=== PATIENT | male | born 1935 | race Caucasian/White ===

== ENCOUNTER 2018-12-27 15:06 | Inpatient (IN) ==
[2018-12-27 16:59] LABS: Basophils % 0.6 % (0.0-0.8); Eosinophils # 0.5 10*3/uL (0.0-0.87); Eosinophils % 6.7 % (0.00-10.9); Hematocrit 47.5 VOL% (42.0-52.0); Hemoglobin 15.2 GM/DL (14.0-18.0); Immature Granulocytes % 0.3 %; Immature Granulocytes Absolute 0.02 #; Lymphocytes # 1.7 10*3/uL (1.4-4.0); Lymphocytes % 25.3 % (21.2-54.2); Mean Corpuscular Volume 99.6 FL (87-102); Mean Platelet Volume 9.8 FL (9.6-12.0); Monocytes % 6.9 % (1.7-12.7); Neutrophils % 60.2 % (38.7-73.9); Platelet Count 124 T/CUMM (130-400); Red Blood Count 4.77 MC/CUMM (3.8-5.5); Red Cell Distribution Width 13.8 % (9.3-17.3); White Blood Count 6.7 T/CUMM (4-12)
[2018-12-27 18:04] LABS: Albumin 3.5 G/DL (3.4-5.0); Bilirubin,Total 0.8 MG/DL (0.2-1.0); Calcium 8.8 MG/DL (8.5-10.1); Osmolality,Calculated 285.1 MOS/KG (273-304)
[2018-12-27] MEDS ORDERED: CEFTAROLINE 600 MG in SODIUM CHLORIDE 0.9% 100 ML IV STA (20:19)
[2018-12-27] MEDS ORDERED: methylPREDNISolone SOD SUC 125 MG/2 ML VIAL IV STA (20:19)
[2018-12-27] MEDS ORDERED: ONDANSETRON 4 MG/2 ML VIAL IV STA (20:19)
[2018-12-27] MEDS ORDERED: FUROSEMIDE 100 MG/10 ML VIAL IV STA (20:19)
[2018-12-27] MEDS ORDERED: ALBUTEROL 2.5 MG/3 ML NEB RESP TX SCH (20:30)
[2018-12-27 21:27] LABS: Apearance,Urine CLEAR (Clear); Bilirubin,Urine Negative (Negative); Blood, Urine Negative (Negative); Glucose,Urine (UA) Negative (Negative); Hyaline Casts,Urine 8 /LPF (0-3); Ketones,Urine Negative (Negative); Mucus,Urine Occasional /LPF (Occasional); Nitrite,Urine Negative (Negative); Protein,Urine Negative; RBC,Urine 1 /HPF (0-4); Urine Color Yellow (Yellow); Urine Specific Gravity 1.014 (1.001-1.035); Urine Urobilinogen < 2.0 EU/DL (0.2-1.0); WBC,Urine 1 /HPF (0-6)
[2018-12-27 21:27] LABS: ABG Base Excess 6.3 MMOL/L (-2.5-2.5); ABG HCO3 30.2 MMOL/L (20-26); ABG Oxygen Saturation 98.7 % (95-100); ABG PCO2 67.5 MM HG (35-48); ABG TCO2 30.4 MMOL/L (23-27)
[2018-12-27] MEDS ORDERED: MORPHINE 4 MG/1 ML VIAL IV PRN (23:36)
[2018-12-27] MEDS ORDERED: ONDANSETRON 4 MG/2 ML VIAL IV PRN ×2 (23:36)
[2018-12-27] MEDS ORDERED: ACETAMINOPHEN 325 MG TABLET PO PRN ×2 (23:36)
[2018-12-28] MEDS: ALBUTEROL/IPRATROPIUM 3 ML NEB RESP TX SCH ×6 (00:06→19:02)
[2018-12-28] MEDS: SODIUM CHLORIDE 0.9% 1,000 ML IV SCH ×2 (01:31→19:33)
[2018-12-28 04:51] LABS: Basophils % 0.3 % (0.0-0.8); Eosinophils % 0.3 % (0.00-10.9); Hematocrit 49.7 VOL% (42.0-52.0); Hemoglobin 15.4 GM/DL (14.0-18.0); Immature Granulocytes % 0.3 %; Immature Granulocytes Absolute 0.01 #; Lymphocytes # 0.3 10*3/uL (1.4-4.0); Lymphocytes % 8.3 % (21.2-54.2); Mean Platelet Volume 9.3 FL (9.6-12.0); Monocytes % 0.8 % (1.7-12.7); Platelet Count 103 T/CUMM (130-400); Red Blood Count 4.92 MC/CUMM (3.8-5.5); Red Cell Distribution Width 13.5 % (9.3-17.3); White Blood Count 3.9 T/CUMM (4-12)
[2018-12-28 05:15] LABS: Albumin 3.5 G/DL (3.4-5.0); Bilirubin,Total 1.2 MG/DL (0.2-1.0); Calcium 8.4 MG/DL (8.5-10.1); Osmolality,Calculated 287.3 MOS/KG (273-304); Risk Ratio 2.17; Total Protein 7.1 G/DL (6.4-8.3); VLDL CHOLESTEROL 7.2 MG/DL
[2018-12-28] MEDS: methylPREDNISolone SOD SUC 40 MG/1 ML VIAL IV SCH ×3 (05:25→20:43)
[2018-12-28] MEDS ORDERED: MELOXICAM 7.5 MG TABLET PO PRN (07:05)
[2018-12-28] MEDS ORDERED: SENNA 8.6 MG TABLET PO PRN (07:30)
[2018-12-28] MEDS ORDERED: PANTOPRAZOLE 40 MG VIAL IV SCH (09:00)
[2018-12-28] MEDS ORDERED: DOCUSATE SODIUM 100 MG CAPSULE PO SCH (09:00)
[2018-12-28] MEDS: ASPIRIN EC 325 MG TABLET PO SCH (10:05)
[2018-12-28] MEDS: ENOXAPARIN 40 MG/0.4 ML SYRINGE SUBCUT SCH (10:05)
[2018-12-28] MEDS: MONTELUKAST 10 MG TABLET PO SCH (10:05)
[2018-12-28] MEDS: DOCUSATE SODIUM 100 MG CAPSULE PO SCH ×2 (10:06→20:41)
[2018-12-28] MEDS: PANTOPRAZOLE 40 MG TABLET PO SCH (10:06)
[2018-12-28] MEDS: POTASSIUM CHLORIDE 20 MEQ TABLET PO SCH (10:06)
[2018-12-28] MEDS: amLODIPine 5 MG TABLET PO SCH (10:06)
[2018-12-28] MEDS: FUROSEMIDE 40 MG TABLET PO SCH ×2 (10:06→17:54)
[2018-12-28] MEDS: CEFTAROLINE 600 MG in SODIUM CHLORIDE 0.9% 100 ML IV SCH ×2 (10:07→20:41)
[2018-12-28] MEDS: FLUTICASONE 50 MCG NASAL SPRAY 16 GM BOTTLE BOTH NARES SCH (10:10)
[2018-12-28] MEDS: TAMSULOSIN 0.4 MG CAPSULE PO SCH (20:41)
[2018-12-28] MEDS: ATORVASTATIN 40 MG TABLET PO SCH (20:41)
[2018-12-28] MEDS: TEMAZEPAM 15 MG CAPSULE PO PRN (22:41)
[2018-12-29] MEDS: ALBUTEROL/IPRATROPIUM 3 ML NEB RESP TX SCH ×7 (00:10→23:59)
[2018-12-29] MEDS: methylPREDNISolone SOD SUC 40 MG/1 ML VIAL IV SCH ×3 (05:39→20:43)
[2018-12-29] MEDS: SODIUM CHLORIDE 0.9% 1,000 ML IV SCH (07:19)
[2018-12-29] MEDS: POTASSIUM CHLORIDE 20 MEQ TABLET PO SCH (08:54)
[2018-12-29] MEDS: MONTELUKAST 10 MG TABLET PO SCH (08:54)
[2018-12-29] MEDS: amLODIPine 5 MG TABLET PO SCH (08:54)
[2018-12-29] MEDS: ASPIRIN EC 325 MG TABLET PO SCH (08:54)
[2018-12-29] MEDS: PANTOPRAZOLE 40 MG TABLET PO SCH (08:54)
[2018-12-29] MEDS: DOCUSATE SODIUM 100 MG CAPSULE PO SCH ×2 (08:54→20:40)
[2018-12-29] MEDS: FUROSEMIDE 40 MG TABLET PO SCH (08:54)
[2018-12-29] MEDS: ENOXAPARIN 40 MG/0.4 ML SYRINGE SUBCUT SCH (08:55)
[2018-12-29] MEDS: FLUTICASONE 50 MCG NASAL SPRAY 16 GM BOTTLE BOTH NARES SCH (08:55)
[2018-12-29] MEDS: CEFTAROLINE 600 MG in SODIUM CHLORIDE 0.9% 100 ML IV SCH ×2 (08:55→20:39)
[2018-12-29] MEDS: ATORVASTATIN 40 MG TABLET PO SCH (20:44)
[2018-12-29] MEDS: TAMSULOSIN 0.4 MG CAPSULE PO SCH (20:44)
[2018-12-29] MEDS: TEMAZEPAM 15 MG CAPSULE PO PRN (20:45)
[2018-12-30] MEDS: ALBUTEROL/IPRATROPIUM 3 ML NEB RESP TX SCH ×6 (03:56→23:41)
[2018-12-30] MEDS: methylPREDNISolone SOD SUC 40 MG/1 ML VIAL IV SCH ×3 (05:29→21:18)
[2018-12-30] MEDS: FLUTICASONE 50 MCG NASAL SPRAY 16 GM BOTTLE BOTH NARES SCH (09:10)
[2018-12-30] MEDS: ASPIRIN EC 325 MG TABLET PO SCH (09:10)
[2018-12-30] MEDS: DOCUSATE SODIUM 100 MG CAPSULE PO SCH ×2 (09:10→21:19)
[2018-12-30] MEDS: POTASSIUM CHLORIDE 20 MEQ TABLET PO SCH (09:10)
[2018-12-30] MEDS: PANTOPRAZOLE 40 MG TABLET PO SCH (09:10)
[2018-12-30] MEDS: amLODIPine 5 MG TABLET PO SCH (09:10)
[2018-12-30] MEDS: ENOXAPARIN 40 MG/0.4 ML SYRINGE SUBCUT SCH (09:11)
[2018-12-30] MEDS: CEFTAROLINE 600 MG in SODIUM CHLORIDE 0.9% 100 ML IV SCH ×2 (09:11→21:20)
[2018-12-30] MEDS: FUROSEMIDE 40 MG TABLET PO SCH (09:11)
[2018-12-30] MEDS: MONTELUKAST 10 MG TABLET PO SCH (09:11)
[2018-12-30] MEDS: TAMSULOSIN 0.4 MG CAPSULE PO SCH (21:18)
[2018-12-30] MEDS: ATORVASTATIN 40 MG TABLET PO SCH (21:19)
[2018-12-31] MEDS: ALBUTEROL/IPRATROPIUM 3 ML NEB RESP TX SCH ×5 (02:49→20:18)
[2018-12-31] MEDS: methylPREDNISolone SOD SUC 40 MG/1 ML VIAL IV SCH ×3 (04:52→22:02)
[2018-12-31] MEDS: ASPIRIN EC 325 MG TABLET PO SCH (09:48)
[2018-12-31] MEDS: FUROSEMIDE 40 MG TABLET PO SCH (09:48)
[2018-12-31] MEDS: MONTELUKAST 10 MG TABLET PO SCH (09:48)
[2018-12-31] MEDS: amLODIPine 5 MG TABLET PO SCH (09:48)
[2018-12-31] MEDS: PANTOPRAZOLE 40 MG TABLET PO SCH (09:48)
[2018-12-31] MEDS: POTASSIUM CHLORIDE 20 MEQ TABLET PO SCH (09:49)
[2018-12-31] MEDS: FLUTICASONE 50 MCG NASAL SPRAY 16 GM BOTTLE BOTH NARES SCH (09:49)
[2018-12-31] MEDS: CEFTAROLINE 600 MG in SODIUM CHLORIDE 0.9% 100 ML IV SCH ×2 (09:49→22:04)
[2018-12-31] MEDS: ENOXAPARIN 40 MG/0.4 ML SYRINGE SUBCUT SCH (09:49)
[2018-12-31] MEDS: DOCUSATE SODIUM 100 MG CAPSULE PO SCH ×2 (09:49→22:03)
[2018-12-31] MEDS: TEMAZEPAM 15 MG CAPSULE PO PRN (22:03)
[2018-12-31] MEDS: ATORVASTATIN 40 MG TABLET PO SCH (22:04)
[2018-12-31] MEDS: TAMSULOSIN 0.4 MG CAPSULE PO SCH (22:04)
[2019-01-01] MEDS: ALBUTEROL/IPRATROPIUM 3 ML NEB RESP TX SCH ×4 (00:04→11:10)
[2019-01-01] MEDS: methylPREDNISolone SOD SUC 40 MG/1 ML VIAL IV SCH ×2 (05:15→12:20)
[2019-01-01 05:24] LABS: Hematocrit 43.4 VOL% (42.0-52.0); Immature Granulocytes % 0.9 %; Immature Granulocytes Absolute 0.06 #; Lymphocytes # 0.4 10*3/uL (1.4-4.0); Lymphocytes % 6.3 % (21.2-54.2); Mean Corpuscular HGB Conc 32.3 GM/DL (32-36); Mean Corpuscular Volume 98.9 FL (87-102); Mean Platelet Volume 9.9 FL (9.6-12.0); Monocytes % 5.5 % (1.7-12.7); Neutrophils % 87.3 % (38.7-73.9); Platelet Count 95 T/CUMM (130-400); Red Blood Count 4.39 MC/CUMM (3.8-5.5); Red Cell Distribution Width 14.1 % (9.3-17.3); White Blood Count 6.9 T/CUMM (4-12)
[2019-01-01 05:42] LABS: Bilirubin,Total 0.8 MG/DL (0.2-1.0); Calcium 8.3 MG/DL (8.5-10.1); Osmolality,Calculated 293.1 MOS/KG (273-304); Total Protein 5.6 G/DL (6.4-8.3)
[2019-01-01] MEDS: ASPIRIN EC 325 MG TABLET PO SCH (09:00)
[2019-01-01] MEDS: amLODIPine 5 MG TABLET PO SCH (09:00)
[2019-01-01] MEDS: PANTOPRAZOLE 40 MG TABLET PO SCH (09:00)
[2019-01-01] MEDS: DOCUSATE SODIUM 100 MG CAPSULE PO SCH (09:00)
[2019-01-01] MEDS: FUROSEMIDE 40 MG TABLET PO SCH (09:00)
[2019-01-01] MEDS: POTASSIUM CHLORIDE 20 MEQ TABLET PO SCH (09:00)
[2019-01-01] MEDS: MONTELUKAST 10 MG TABLET PO SCH (09:00)
[2019-01-01] MEDS: FLUTICASONE 50 MCG NASAL SPRAY 16 GM BOTTLE BOTH NARES SCH (09:01)
[2019-01-01] MEDS: ENOXAPARIN 40 MG/0.4 ML SYRINGE SUBCUT SCH (09:01)
[2019-01-01] MEDS: CEFTAROLINE 600 MG in SODIUM CHLORIDE 0.9% 100 ML IV SCH (09:01)
[2019-01-01 12:32] VITALS: BP 122/86
== END 2019-01-01 15:25 | disposition home or self-care (01) | DRG 190 ==
LOC: N.ED 15:06 → N.EDINP 21:03 → N.2E 21:53
PROVIDERS: ADMIT Family Medicine; ATTEND Family Medicine

== ENCOUNTER 2021-06-29 09:29 | Inpatient (IN) ==
[2021-06-29] MEDS ORDERED: SODIUM CHLORIDE 0.9% 500 ML IV STA (10:00)
[2021-06-29 10:26] LABS: Basophils # 0.1 10*3/uL (0.0-0.2); Basophils % 0.6 % (0.0-0.8); Eosinophils % 0.3 % (0.00-10.9); Hemoglobin 15.8 GM/DL (14.0-18.0); Immature Granulocytes % 0.5 %; Immature Granulocytes Absolute 0.06 #; Lymphocytes # 1.6 10*3/uL (1.4-4.0); Lymphocytes % 13.7 % (21.2-54.2); Mean Corpuscular HGB Conc 32.9 GM/DL (32-36); Monocytes % 6.5 % (1.7-12.7); Neutrophils % 78.4 % (38.7-73.9); Platelet Count 118 T/CUMM (130-400); Red Cell Distribution Width 14.1 % (9.3-17.3); White Blood Count 11.9 T/CUMM (4-12)
[2021-06-29 10:55] LABS: Albumin 3.5 G/DL (3.4-5.0); Bilirubin,Total 1.4 MG/DL (0.20-1.00); Potassium 3.3 MMOL/L (3.5-5.1); Total Protein 7.2 G/DL (6.4-8.2)
[2021-06-29 11:08] LABS: Hypochromasia 1+
[2021-06-29 11:10] LABS: Macrocytosis Slight
[2021-06-29] MEDS ORDERED: ONDANSETRON 4 MG/2 ML VIAL IV PRN (12:52)
[2021-06-29] MEDS: SODIUM CHLORIDE 0.9% 1,000 ML IV SCH (14:04)
[2021-06-29] MEDS: ACETAMINOPHEN 325 MG TABLET PO PRN (14:11)
[2021-06-29] MEDS ORDERED: ALBUTEROL 2.5 MG/3 ML NEB RESP TX PRN (14:13)
[2021-06-29] MEDS ORDERED: ACETAMINOPHEN 325 MG TABLET PO PRN (14:13)
[2021-06-29] MEDS ORDERED: SENNOSIDES 15 MG PO PRN (14:13)
[2021-06-29] MEDS: ALBUTEROL/IPRATROPIUM 3 ML NEB RESP TX SCH ×2 (18:10→20:20)
[2021-06-29] MEDS: DOCUSATE SODIUM 100 MG CAPSULE PO SCH (21:18)
[2021-06-29] MEDS: TAMSULOSIN 0.4 MG CAPSULE PO SCH (21:19)
[2021-06-29] MEDS: ATORVASTATIN 40 MG TABLET PO SCH (21:19)
[2021-06-29] MEDS: ENOXAPARIN 40 MG/0.4 ML SYRINGE SUBCUT SCH (21:19)
[2021-06-30] MEDS: ACETAMINOPHEN 325 MG TABLET PO PRN ×2 (00:18→23:35)
[2021-06-30] MEDS: ALBUTEROL/IPRATROPIUM 3 ML NEB RESP TX SCH ×7 (00:48→23:30)
[2021-06-30] MEDS: SODIUM CHLORIDE 0.9% 1,000 ML IV SCH (03:33)
[2021-06-30 06:52] LABS: Calcium 8.4 MG/DL (8.5-10.1); Osmolality,Calculated 271.1 MOS/KG (273-304); Potassium 2.8 MMOL/L (3.5-5.1)
[2021-06-30] MEDS ORDERED: POTASSIUM CHLORIDE INJ 20 MEQ in SODIUM CHLORIDE 0.9% 1,000 ML IV SCH (07:52)
[2021-06-30] MEDS: amLODIPine 5 MG TABLET PO SCH (08:46)
[2021-06-30] MEDS: DOCUSATE SODIUM 100 MG CAPSULE PO SCH ×2 (08:46→20:57)
[2021-06-30] MEDS: FLUTICASONE 50 MCG NASAL SPRAY 16 GM BOTTLE BOTH NARES SCH (08:46)
[2021-06-30] MEDS: FUROSEMIDE 20 MG TABLET PO SCH ×2 (08:46→15:36)
[2021-06-30] MEDS: PANTOPRAZOLE 40 MG TABLET PO SCH (08:46)
[2021-06-30] MEDS: POTASSIUM CHLORIDE RIDER 10 MEQ/100 ML PREMIX IV SCH ×4 (08:46→12:49)
[2021-06-30] MEDS: ASPIRIN EC 325 MG TABLET PO SCH (08:46)
[2021-06-30] MEDS: SODIUM CHLOR 0.9% KCL 20 MEQ 20 MEQ/1,000 ML BAG IV SCH ×2 (08:46→23:35)
[2021-06-30] MEDS: MONTELUKAST 10 MG TABLET PO SCH (08:46)
[2021-06-30] MEDS: ENOXAPARIN 40 MG/0.4 ML SYRINGE SUBCUT SCH (20:56)
[2021-06-30] MEDS: TAMSULOSIN 0.4 MG CAPSULE PO SCH (20:57)
[2021-06-30] MEDS: ATORVASTATIN 40 MG TABLET PO SCH (20:57)
[2021-07-01] MEDS: ALBUTEROL/IPRATROPIUM 3 ML NEB RESP TX SCH ×6 (03:28→23:16)
[2021-07-01] MEDS: SODIUM CHLOR 0.9% KCL 20 MEQ 20 MEQ/1,000 ML BAG IV SCH ×2 (04:37→21:32)
[2021-07-01 07:01] LABS: Basophils % 0.2 % (0.0-0.8); Hematocrit 41.7 VOL% (42.0-52.0); Immature Granulocytes % 1.3 %; Immature Granulocytes Absolute 0.19 #; Lymphocytes # 1.6 10*3/uL (1.4-4.0); Lymphocytes % 10.6 % (21.2-54.2); Mean Corpuscular HGB Conc 32.9 GM/DL (32-36); Mean Corpuscular Volume 96.8 FL (87-102); Mean Platelet Volume 10.3 FL (9.6-12.0); Monocytes % 9.7 % (1.7-12.7); Neutrophils % 78.2 % (38.7-73.9); Platelet Count 102 T/CUMM (130-400); Red Blood Count 4.31 MC/CUMM (3.8-5.5); White Blood Count 14.7 T/CUMM (4-12)
[2021-07-01 07:04] LABS: Hemoglobin 13.7 GM/DL (14.0-18.0)
[2021-07-01 07:05] LABS: Risk Ratio 2.35; Thyroid Stimulating Hormone 0.477 uIU/ml (0.358-3.74); VLDL Cholesterol 13.6 MG/DL
[2021-07-01 07:10] LABS: Hypochromasia Slight; Lymphocytes 7 % (20-55); Microcytosis Slight; Platelet Estimate Decreased; Segmented Neutrophils 87 % (50-85); Total Cells Counted 100
[2021-07-01 07:26] LABS: Albumin 2.5 G/DL (3.4-5.0); Bilirubin,Total 2.1 MG/DL (0.20-1.00); Calcium 8.5 MG/DL (8.5-10.1); Osmolality,Calculated 273.1 MOS/KG (273-304); Potassium 3.2 MMOL/L (3.5-5.1); Total Protein 5.9 G/DL (6.4-8.2)
[2021-07-01] MEDS: amLODIPine 5 MG TABLET PO SCH (09:59)
[2021-07-01] MEDS: FUROSEMIDE 20 MG TABLET PO SCH ×2 (09:59→16:00)
[2021-07-01] MEDS: POTASSIUM CHLORIDE 20 MEQ TABLET PO SCH ×2 (09:59→21:33)
[2021-07-01] MEDS: ASPIRIN EC 325 MG TABLET PO SCH (09:59)
[2021-07-01] MEDS: DOCUSATE SODIUM 100 MG CAPSULE PO SCH ×2 (09:59→21:33)
[2021-07-01] MEDS: FLUTICASONE 50 MCG NASAL SPRAY 16 GM BOTTLE BOTH NARES SCH (10:00)
[2021-07-01] MEDS: POTASSIUM CHLORIDE RIDER 10 MEQ/100 ML PREMIX IV SCH ×3 (10:00→12:11)
[2021-07-01] MEDS: PANTOPRAZOLE 40 MG TABLET PO SCH (10:00)
[2021-07-01] MEDS: MULTIVITAMIN (CENTRUM) TABLET PO SCH (10:00)
[2021-07-01] MEDS: MONTELUKAST 10 MG TABLET PO SCH (10:00)
[2021-07-01] MEDS: ACETAMINOPHEN 325 MG TABLET PO PRN (17:30)
[2021-07-01] MEDS: ATORVASTATIN 40 MG TABLET PO SCH (21:33)
[2021-07-01] MEDS: ENOXAPARIN 40 MG/0.4 ML SYRINGE SUBCUT SCH (21:33)
[2021-07-01] MEDS: TAMSULOSIN 0.4 MG CAPSULE PO SCH (21:33)
[2021-07-02] MEDS: ALBUTEROL/IPRATROPIUM 3 ML NEB RESP TX SCH ×6 (00:42→19:47)
[2021-07-02] MEDS: ACETAMINOPHEN 325 MG TABLET PO PRN ×2 (01:05→19:24)
[2021-07-02] MEDS: SODIUM CHLOR 0.9% KCL 20 MEQ 20 MEQ/1,000 ML BAG IV SCH ×2 (02:58→14:39)
[2021-07-02 06:19] LABS: Basophils % 0.3 % (0.0-0.8); Eosinophils % 0.4 % (0.00-10.9); Hematocrit 41.1 VOL% (42.0-52.0); Hemoglobin 13.4 GM/DL (14.0-18.0); Immature Granulocytes % 0.8 %; Immature Granulocytes Absolute 0.09 #; Lymphocytes # 0.9 10*3/uL (1.4-4.0); Lymphocytes % 8.1 % (21.2-54.2); Mean Corpuscular HGB Conc 32.6 GM/DL (32-36); Mean Corpuscular Volume 97.4 FL (87-102); Mean Platelet Volume 10.4 FL (9.6-12.0); Monocytes % 7.8 % (1.7-12.7); Neutrophils % 82.6 % (38.7-73.9); Red Blood Count 4.22 MC/CUMM (3.8-5.5); Red Cell Distribution Width 14.3 % (9.3-17.3); White Blood Count 10.8 T/CUMM (4-12)
[2021-07-02 06:23] LABS: Platelet Count 87 T/CUMM (130-400)
[2021-07-02 06:37] LABS: Albumin 2.5 G/DL (3.4-5.0); Calcium 8.2 MG/DL (8.5-10.1); Potassium 3.7 MMOL/L (3.5-5.1); Total Protein 6.2 G/DL (6.4-8.2)
[2021-07-02 06:40] LABS: Hypochromasia Slight; Microcytosis Slight; Platelet Estimate Decreased
[2021-07-02] MEDS: MONTELUKAST 10 MG TABLET PO SCH (09:47)
[2021-07-02] MEDS: DOCUSATE SODIUM 100 MG CAPSULE PO SCH ×2 (09:47→20:05)
[2021-07-02] MEDS: ASPIRIN EC 325 MG TABLET PO SCH (09:47)
[2021-07-02] MEDS: FUROSEMIDE 20 MG TABLET PO SCH ×2 (09:47→17:09)
[2021-07-02] MEDS: POTASSIUM CHLORIDE 20 MEQ TABLET PO SCH ×2 (09:47→20:05)
[2021-07-02] MEDS: PANTOPRAZOLE 40 MG TABLET PO SCH (09:47)
[2021-07-02] MEDS: MULTIVITAMIN (CENTRUM) TABLET PO SCH (09:47)
[2021-07-02] MEDS: amLODIPine 5 MG TABLET PO SCH (09:47)
[2021-07-02] MEDS: FLUTICASONE 50 MCG NASAL SPRAY 16 GM BOTTLE BOTH NARES SCH (09:48)
[2021-07-02] MEDS: TAMSULOSIN 0.4 MG CAPSULE PO SCH (20:05)
[2021-07-02] MEDS: ATORVASTATIN 40 MG TABLET PO SCH (20:05)
[2021-07-02] MEDS: ENOXAPARIN 40 MG/0.4 ML SYRINGE SUBCUT SCH (20:05)
[2021-07-03 01:41] LABS: Bilirubin,Urine Negative (Negative); Blood, Urine Small mg/dL (Negative); Glucose,Urine (UA) Negative (Negative); Ketones,Urine Negative (Negative); Mucus,Urine Occasional /LPF (Occasional); Nitrite,Urine Negative (Negative); Protein,Urine Negative; Urine Appearance CLEAR (Clear); Urine Color Yellow (Yellow); Urine Specific Gravity 1.013 (1.001-1.035)
[2021-07-03] MEDS: ALBUTEROL/IPRATROPIUM 3 ML NEB RESP TX SCH ×5 (03:20→19:59)
[2021-07-03] MEDS: SODIUM CHLOR 0.9% KCL 20 MEQ 20 MEQ/1,000 ML BAG IV SCH ×2 (04:58→17:46)
[2021-07-03 06:52] LABS: Basophils % 0.3 % (0.0-0.8); Eosinophils % 0.2 % (0.00-10.9); Hematocrit 42.1 VOL% (42.0-52.0); Hemoglobin 13.5 GM/DL (14.0-18.0); Immature Granulocytes % 0.5 %; Immature Granulocytes Absolute 0.06 #; Lymphocytes # 1.1 10*3/uL (1.4-4.0); Lymphocytes % 9.5 % (21.2-54.2); Mean Corpuscular HGB Conc 32.1 GM/DL (32-36); Mean Corpuscular Volume 99.3 FL (87-102); Mean Platelet Volume 10.5 FL (9.6-12.0); Monocytes % 7.7 % (1.7-12.7); Neutrophils % 81.8 % (38.7-73.9); Platelet Count 102 T/CUMM (130-400); Red Blood Count 4.24 MC/CUMM (3.8-5.5); Red Cell Distribution Width 14.4 % (9.3-17.3); White Blood Count 11.1 T/CUMM (4-12)
[2021-07-03 07:17] LABS: Calcium 8.3 MG/DL (8.5-10.1); Osmolality,Calculated 274.8 MOS/KG (273-304); Potassium 3.2 MMOL/L (3.5-5.1)
[2021-07-03] MEDS: LEVOFLOXACIN INJ 500 MG/100 ML PREMIX IV SCH (09:53)
[2021-07-03] MEDS: PANTOPRAZOLE 40 MG TABLET PO SCH (09:54)
[2021-07-03] MEDS: DOCUSATE SODIUM 100 MG CAPSULE PO SCH ×2 (09:54→20:34)
[2021-07-03] MEDS: MULTIVITAMIN (CENTRUM) TABLET PO SCH (09:54)
[2021-07-03] MEDS: amLODIPine 5 MG TABLET PO SCH (09:54)
[2021-07-03] MEDS: ASPIRIN EC 325 MG TABLET PO SCH (09:54)
[2021-07-03] MEDS: FUROSEMIDE 20 MG TABLET PO SCH ×2 (09:54→16:53)
[2021-07-03] MEDS: MONTELUKAST 10 MG TABLET PO SCH (09:54)
[2021-07-03] MEDS: POTASSIUM CHLORIDE 20 MEQ TABLET PO SCH ×2 (09:54→20:34)
[2021-07-03] MEDS: POTASSIUM CHLORIDE RIDER 10 MEQ/100 ML PREMIX IV SCH ×5 (12:38→17:05)
[2021-07-03] MEDS: FLUTICASONE 50 MCG NASAL SPRAY 16 GM BOTTLE BOTH NARES SCH (12:38)
[2021-07-03] MEDS: ATORVASTATIN 40 MG TABLET PO SCH (20:34)
[2021-07-03] MEDS: TAMSULOSIN 0.4 MG CAPSULE PO SCH (20:34)
[2021-07-03] MEDS: ACETAMINOPHEN 325 MG TABLET PO PRN (20:35)
[2021-07-03] MEDS: ENOXAPARIN 40 MG/0.4 ML SYRINGE SUBCUT SCH (20:35)
[2021-07-04] MEDS: ALBUTEROL/IPRATROPIUM 3 ML NEB RESP TX SCH ×6 (00:25→19:40)
[2021-07-04] MEDS: SODIUM CHLOR 0.9% KCL 20 MEQ 20 MEQ/1,000 ML BAG IV SCH ×3 (01:07→15:20)
[2021-07-04 06:11] LABS: Basophils % 0.4 % (0.0-0.8); Eosinophils % 0.5 % (0.00-10.9); Hematocrit 37.3 VOL% (42.0-52.0); Hemoglobin 12.2 GM/DL (14.0-18.0); Immature Granulocytes % 0.7 %; Immature Granulocytes Absolute 0.05 #; Lymphocytes % 13.8 % (21.2-54.2); Mean Corpuscular HGB Conc 32.7 GM/DL (32-36); Mean Corpuscular Volume 98.7 FL (87-102); Mean Platelet Volume 10.4 FL (9.6-12.0); Monocytes % 11.6 % (1.7-12.7); Platelet Count 94 T/CUMM (130-400); Red Blood Count 3.78 MC/CUMM (3.8-5.5); Red Cell Distribution Width 14.6 % (9.3-17.3); White Blood Count 7.5 T/CUMM (4-12)
[2021-07-04 06:31] LABS: Albumin 2.1 G/DL (3.4-5.0); Bilirubin,Total 1.2 MG/DL (0.20-1.00); Calcium 8.3 MG/DL (8.5-10.1); Osmolality,Calculated 274.8 MOS/KG (273-304); Total Protein 5.5 G/DL (6.4-8.2)
[2021-07-04 06:35] LABS: Platelet Estimate Decreased
[2021-07-04] MEDS: MONTELUKAST 10 MG TABLET PO SCH (09:25)
[2021-07-04] MEDS: POTASSIUM CHLORIDE 20 MEQ TABLET PO SCH ×2 (09:25→20:28)
[2021-07-04] MEDS: FUROSEMIDE 20 MG TABLET PO SCH ×2 (09:25→15:19)
[2021-07-04] MEDS: PANTOPRAZOLE 40 MG TABLET PO SCH (09:25)
[2021-07-04] MEDS: FLUTICASONE 50 MCG NASAL SPRAY 16 GM BOTTLE BOTH NARES SCH (09:25)
[2021-07-04] MEDS: ASPIRIN EC 325 MG TABLET PO SCH (09:25)
[2021-07-04] MEDS: MULTIVITAMIN (CENTRUM) TABLET PO SCH (09:25)
[2021-07-04] MEDS: amLODIPine 5 MG TABLET PO SCH (09:26)
[2021-07-04] MEDS: LEVOFLOXACIN INJ 500 MG/100 ML PREMIX IV SCH (09:26)
[2021-07-04] MEDS: DOCUSATE SODIUM 100 MG CAPSULE PO SCH ×2 (14:40→20:28)
[2021-07-04] MEDS: ACETAMINOPHEN 325 MG TABLET PO PRN (15:19)
[2021-07-04] MEDS: ENOXAPARIN 40 MG/0.4 ML SYRINGE SUBCUT SCH (20:29)
[2021-07-04] MEDS: TAMSULOSIN 0.4 MG CAPSULE PO SCH (20:29)
[2021-07-04] MEDS: ATORVASTATIN 40 MG TABLET PO SCH (20:29)
[2021-07-05] MEDS: ALBUTEROL/IPRATROPIUM 3 ML NEB RESP TX SCH ×7 (00:11→23:26)
[2021-07-05] MEDS: ACETAMINOPHEN 325 MG TABLET PO PRN (00:35)
[2021-07-05] MEDS: SODIUM CHLOR 0.9% KCL 20 MEQ 20 MEQ/1,000 ML BAG IV SCH ×3 (05:08→23:37)
[2021-07-05 05:47] LABS: Basophils % 0.3 % (0.0-0.8); Eosinophils % 0.3 % (0.00-10.9); Hematocrit 38.1 VOL% (42.0-52.0); Hemoglobin 12.5 GM/DL (14.0-18.0); Immature Granulocytes % 1.1 %; Immature Granulocytes Absolute 0.08 #; Lymphocytes # 0.9 10*3/uL (1.4-4.0); Lymphocytes % 12.7 % (21.2-54.2); Mean Corpuscular HGB Conc 32.8 GM/DL (32-36); Mean Corpuscular Volume 97.7 FL (87-102); Mean Platelet Volume 10.5 FL (9.6-12.0); Monocytes % 14.4 % (1.7-12.7); Neutrophils % 71.2 % (38.7-73.9); Platelet Count 119 T/CUMM (130-400); Red Cell Distribution Width 14.5 % (9.3-17.3)
[2021-07-05 06:09] LABS: Calcium 8.3 MG/DL (8.5-10.1); Osmolality,Calculated 275.8 MOS/KG (273-304); Potassium 3.6 MMOL/L (3.5-5.1)
[2021-07-05 06:25] LABS: Anisocytosis Slight; Ovalocytes Slight; Platelet Estimate Adequate
[2021-07-05] MEDS: POTASSIUM CHLORIDE 20 MEQ TABLET PO SCH ×2 (08:47→20:58)
[2021-07-05] MEDS: ASPIRIN EC 325 MG TABLET PO SCH (08:47)
[2021-07-05] MEDS: amLODIPine 5 MG TABLET PO SCH (08:48)
[2021-07-05] MEDS: FUROSEMIDE 20 MG TABLET PO SCH ×2 (08:48→15:26)
[2021-07-05] MEDS: MULTIVITAMIN (CENTRUM) TABLET PO SCH (08:48)
[2021-07-05] MEDS: LEVOFLOXACIN INJ 500 MG/100 ML PREMIX IV SCH (08:48)
[2021-07-05] MEDS: DOCUSATE SODIUM 100 MG CAPSULE PO SCH ×2 (08:48→20:58)
[2021-07-05] MEDS: FLUTICASONE 50 MCG NASAL SPRAY 16 GM BOTTLE BOTH NARES SCH (08:48)
[2021-07-05] MEDS: MONTELUKAST 10 MG TABLET PO SCH (08:48)
[2021-07-05] MEDS: PANTOPRAZOLE 40 MG TABLET PO SCH (08:48)
[2021-07-05] MEDS: TAMSULOSIN 0.4 MG CAPSULE PO SCH (20:58)
[2021-07-05] MEDS: ATORVASTATIN 40 MG TABLET PO SCH (20:58)
[2021-07-05] MEDS: ENOXAPARIN 40 MG/0.4 ML SYRINGE SUBCUT SCH (20:59)
[2021-07-06] MEDS: ALBUTEROL/IPRATROPIUM 3 ML NEB RESP TX SCH ×6 (03:25→23:21)
[2021-07-06] MEDS: SODIUM CHLOR 0.9% KCL 20 MEQ 20 MEQ/1,000 ML BAG IV SCH ×2 (07:29→22:05)
[2021-07-06] MEDS: PANTOPRAZOLE 40 MG TABLET PO SCH (10:10)
[2021-07-06] MEDS: FUROSEMIDE 20 MG TABLET PO SCH ×2 (10:10→15:45)
[2021-07-06] MEDS: MONTELUKAST 10 MG TABLET PO SCH (10:10)
[2021-07-06] MEDS: LEVOFLOXACIN INJ 500 MG/100 ML PREMIX IV SCH (10:10)
[2021-07-06] MEDS: amLODIPine 5 MG TABLET PO SCH (10:10)
[2021-07-06] MEDS: FLUTICASONE 50 MCG NASAL SPRAY 16 GM BOTTLE BOTH NARES SCH (10:10)
[2021-07-06] MEDS: POTASSIUM CHLORIDE 20 MEQ TABLET PO SCH ×2 (10:10→20:47)
[2021-07-06] MEDS: MULTIVITAMIN (CENTRUM) TABLET PO SCH (10:10)
[2021-07-06] MEDS: ASPIRIN EC 325 MG TABLET PO SCH (10:10)
[2021-07-06] MEDS: DOCUSATE SODIUM 100 MG CAPSULE PO SCH ×2 (10:10→20:47)
[2021-07-06 13:30] LABS: Basophils % 0.3 % (0.0-0.8); Eosinophils # 0.1 10*3/uL (0.0-0.87); Eosinophils % 1.2 % (0.00-10.9); Hematocrit 38.4 VOL% (42.0-52.0); Hemoglobin 12.6 GM/DL (14.0-18.0); Immature Granulocytes % 0.7 %; Immature Granulocytes Absolute 0.05 #; Lymphocytes # 1.2 10*3/uL (1.4-4.0); Lymphocytes % 17.2 % (21.2-54.2); Mean Corpuscular HGB Conc 32.8 GM/DL (32-36); Mean Corpuscular Volume 97.7 FL (87-102); Mean Platelet Volume 10.1 FL (9.6-12.0); Monocytes % 12.9 % (1.7-12.7); Neutrophils % 67.7 % (38.7-73.9); Platelet Count 150 T/CUMM (130-400); Red Blood Count 3.93 MC/CUMM (3.8-5.5); Red Cell Distribution Width 14.6 % (9.3-17.3); White Blood Count 6.7 T/CUMM (4-12)
[2021-07-06 13:50] LABS: Calcium 8.2 MG/DL (8.5-10.1); Osmolality,Calculated 280.4 MOS/KG (273-304); Potassium 3.7 MMOL/L (3.5-5.1)
[2021-07-06] MEDS: ATORVASTATIN 40 MG TABLET PO SCH (20:46)
[2021-07-06] MEDS: ACETAMINOPHEN 325 MG TABLET PO PRN (20:46)
[2021-07-06] MEDS: ENOXAPARIN 40 MG/0.4 ML SYRINGE SUBCUT SCH (20:47)
[2021-07-06] MEDS: TAMSULOSIN 0.4 MG CAPSULE PO SCH (20:47)
[2021-07-07] MEDS: ALBUTEROL/IPRATROPIUM 3 ML NEB RESP TX SCH ×3 (03:06→11:00)
[2021-07-07] MEDS ORDERED: SULFAMETHOX/TRIMETHOPRIM 800-160 MG TABLET PO SCH (08:00)
[2021-07-07] MEDS: MONTELUKAST 10 MG TABLET PO SCH (08:54)
[2021-07-07] MEDS: POTASSIUM CHLORIDE 20 MEQ TABLET PO SCH (08:54)
[2021-07-07] MEDS: amLODIPine 5 MG TABLET PO SCH (08:54)
[2021-07-07] MEDS: PANTOPRAZOLE 40 MG TABLET PO SCH (08:54)
[2021-07-07] MEDS: MULTIVITAMIN (CENTRUM) TABLET PO SCH (08:54)
[2021-07-07] MEDS: DOCUSATE SODIUM 100 MG CAPSULE PO SCH (08:54)
[2021-07-07] MEDS: FUROSEMIDE 20 MG TABLET PO SCH (08:54)
[2021-07-07] MEDS: ASPIRIN EC 325 MG TABLET PO SCH (08:54)
[2021-07-07] MEDS: FLUTICASONE 50 MCG NASAL SPRAY 16 GM BOTTLE BOTH NARES SCH (08:55)
[2021-07-07] MEDS: LEVOFLOXACIN INJ 500 MG/100 ML PREMIX IV SCH (08:55)
[2021-07-07 12:44] VITALS: BP 135/60
== END 2021-07-07 14:05 | disposition home health service (06) | DRG 193 ==
LOC: EDUNIT# → EDBD → N.ED 09:29 → N.EDINP 09:29 → N.3E 16:23
PROVIDERS: ADMIT Family Medicine; ATTEND Family Medicine